=== PATIENT | male | born 1985 | race Two or more races ===

== ENCOUNTER 2021-05-10 09:54 | Emergency (ER) | payer MEDICAID, OTHER ==
[~2021-05-10] VITALS: Ht 182.9 cm; Wt 79.4 kg
[2021-05-10 11:29] VITALS: BP 131/79
== END 2021-05-10 12:42 | disposition home or self-care (01) ==
LOC: ER 09:54
DX: J20.9 Acute bronchitis, unspecified (principal); F17.210 Nicotine dependence, cigarettes, uncomplicated
CPT/HCPCS: 71046